=== PATIENT | male | born 1975 | race African-American/Black ===

== ENCOUNTER 2023-07-07 08:22 | Outpatient (CLI) | payer MEDICARE, SELFPAY ==
--- NOTE | ~2023-07-07 | XR_ITS ---
EXAMINATION: XR hand BI arthritis min 3V DATE: 07/07/2023 09:21 INDICATION: Rheumatoid arthritis with rheumatoid factor. TECHNIQUE: 4 views of right hand and 4 views of left hand on a total of 7 radiographs were obtained. COMPARISON: None. FINDINGS: RIGHT HAND: Bone alignment is normal. No fracture. There is mild osteoarthritis of second and third d istal interphalangeal joints. LEFT HAND: Bone alignment is normal. No fracture. There is mild osteoarthritis of first interphalange al joint and third distal interphalangeal joint. IMPRESSION: 1. Mild polyarticular osteoarthritis. No evidence of inflammatory arthropathy. Reviewed, dictated and finalized at location A.
--- NOTE | ~2023-07-07 | XR_ITS ---
XR sacroiliac joints min 3V 07/07/2023 09:21 Indication: Rheumatoid arthritis. Procedure: 3 view sacroiliac joints Comparison: No prior studies for comparison. Findings: There is lower lumbar spondylosis at the lumbosacral junction. Sacral iliac joints are symm etric. No significant joint space narrowing, ankylosis or erosion. Sacral foramen are symmetric. Pelv ic rings are intact. Impression: 1: No significant abnormality of the sacroiliac joints. Reviewed, dictated and finalized at location L. Impression: 1: No significant abnormality of the sacroiliac joints.
--- NOTE | ~2023-07-07 | XR_ITS ---
EXAMINATION: XR foot LT standing 2V, XR foot RT standing 2V DATE: 07/07/2023 09:21 INDICATION: Rheumatoid arthritis with rheumatoid factor TECHNIQUE: 1. Weight bearing dorsal plantar and lateral views of the left foot were obtained. 2. Weightbearing dorsal plantar and lateral views of the right foot were obtained. COMPARISON: None. FINDINGS: There is mild bilateral pes planus with mild flattening of the longitudinal arch. Alignment is otherw ise normal. No fractures. Minimal to mild polyarticular osteoarthritis characterized by nonuniform patricia int space narrowing and/or small marginal osteophytes most prominent at the bilateral first metatarso phalangeal joints and to lesser degree at the ankle joints and several tarsal metatarsal and interpha langeal joints. No erosions to suggest inflammatory arthritis. IMPRESSION: 1. Mild bilateral pes planus with minimal to mild polyarticular osteoarthritis at the bilateral feet and ankles. Reviewed, dictated and finalized at location A. IMPRESSION: 1. Mild bilateral pes planus with minimal to mild polyarticular osteoarthritis at the bilateral feet and ankles.
[2023-07-07 09:34] LABS: Hemoglobin 16.5 g/dL (14.0-18.0); Mean Corpuscular HGB Conc 31.7 g/dl (32-36); Mean Corpuscular Hemoglobin 27.2 pg (26-34); Mean Corpuscular Volume 85.8 fl (80-100); Mean Platelet Volume 9.2 fl (7.4-10.4); Platelet Count Result 261 k/mm3 (150-375); Red Blood Count 6.06 M/mm3 (4.6-6.20); Red Cell Distribution Width 14.4 % (11.5-14.5); White Blood Count 5.3 K/mm3 (4.5-10.0)
[2023-07-07 09:47] LABS: Rheumatoid Factor < 12.0 IU/ML (<12)
[2023-07-07 09:55] LABS: Alanine Aminotransferase 24 U/L (6-50); Albumin Level 4.3 g/dL (3.5-5.1); Alkaline Phosphatase 69 U/L (38-126); Anion Gap 7 mmol/L (4-12); Aspartate Amino Transferase 25 U/L (17-59); Bilirubin,Total 0.7 mg/dL (0.2-1.3); Blood Urea Nitrogen 15 mg/dL (9-20); CRP < 0.5 mg/dL (<1.0); Calcium 9.4 mg/dL (8.4-10.2); Carbon Dioxide 32 mmol/L (22-30); Chloride 102 mmol/L (98-107); Estimated Glomerular Filt Rate > 60; Glucose 124 mg/dL (65-110); Potassium 2.5 mmol/L (3.4-5.0); Sodium 141 mmol/L (137-145)
[2023-07-07 11:20] LABS: Hepatitis C Virus Antibody Negative (Negative)
[2023-07-07 11:31] LABS: Erythrocyte Sedimentation Rate 1 mm/hr (0-20)
[2023-07-09 15:04] LABS: NIL 0.02 IU/mL; Quantiferon TB Plus, 1T NEGATIVE (NEGATIVE); TB1-NIL 0.01 IU/mL
[2023-07-09 17:58] LABS: SS-A <1.0; SS-B <1.0
[2023-07-09 21:08] LABS: Anti Cyclic Citrullinated Pept <16 Units (<20)
[2023-07-14 20:30] LABS: Lupus dRVVT Screen 38 sec (<=45); PTT-LA Screen 36 sec (<=40)
== END 2023-07-07 08:23 | disposition home or self-care (01) ==
PROVIDERS: PCP Family Medicine; Visit Provider Internal Medicine
DX: M05.79 Rheumatoid arthritis with rheumatoid factor of multiple sites without organ or systems involvement (principal); Z71.89 Other specified counseling; Z79.899 Other long term (current) drug therapy; R89.9 Unspecified abnormal finding in specimens from other organs, systems and tissues; M19.041 Primary osteoarthritis, right hand; M19.042 Primary osteoarthritis, left hand; M19.071 Primary osteoarthritis, right ankle and foot; M19.072 Primary osteoarthritis, left ankle and foot
CPT/HCPCS: 36415; 72202; 73130; 73620; 80053; 85027; 85613; 85652; 85730; 86038; 86140; 86200; 86225; 86235; 86430; 86480; 86803

== ENCOUNTER 2024-03-25 09:54 | Outpatient (CLI) | payer MEDICARE, SELFPAY | END 2024-03-25 09:55 | disposition home or self-care (01) | LOC: ANHAUDIO 09:56 | PROVIDERS: PCP Family Medicine | DX: H90.3 Sensorineural hearing loss, bilateral (principal) | CPT/HCPCS: 92557; 92567 ==